=== PATIENT | male | born 1945 | race Caucasian/White ===

== ENCOUNTER 2021-04-07 03:29 | Outpatient (CLI) | payer OTHER, SELFPAY ==
[2021-04-07 10:40] LABS: Abs Immature Grans 0.07 10^3/uL (0.0-0.06); Absolute Basophil Count 0.02 10^3/uL (0.0-0.2); Absolute Eosinophil Count 0.21 10^3/uL (0.0-0.7); Absolute Lymphocyte Count 0.91 10^3/uL (1.2-3.4); Absolute Monocyte Count 1.36 10^3/uL (0.1-0.8); Absolute Neutrophil Count 6.06 10^3/uL (1.2-6.7); Basophils % 0.2; Eosinophils % 2.4; HCT 37.2 % (40.0-50.0); HGB 12.2 g/dL (13.5-17.5); Immature Grans % 0.8; Lymphocytes % 10.5; MCH 28.6 pg (27.0-33.0); MCHC 32.8 % (32.0-36.0); MCV 87.3 fL (80-95); MPV 10.8 fL (8.0-11.0); Monocytes % 15.8; Neutrophils % 70.3; Nucleated RBC 0 %; Platelet Count 168 10^3/uL (130-400); RBC 4.26 10^6/uL (4.36-5.78); RDW 12.9 % (11.8-14.1); RDW-SD 40.3 fL; WBC 8.63 10^3/uL (4.4-10.8)
[2021-04-07 11:01] LABS: ALT 14 U/L (16-63); AST 8 U/L (15-37); Albumin 3.3 g/dL (3.4-5.0); Alkaline Phosphatase 77 U/L (46-116); BUN 12 mg/dL (7-18); Bilirubin, Total 0.9 mg/dL (0.2-1.0); CREATININE 1.2 mg/dL (0.70-1.30); Calcium 8.6 mg/dL (8.5-10.1); Chloride 99 mmol/L (98-107); Estimated GFR 58.71 (mL/min/1.73m2); Glucose 102 mg/dL (74-106); Magnesium 2.2 mg/dL (1.8-2.4); Potassium 3.8 mmol/L (3.5-5.1); Sodium 138 mmol/L (136-145); TSH 2.73 uIU/mL (0.36-3.74); Total Protein 7.2 g/dL (6.4-8.2)
[2021-04-07 11:34] LABS: FREE T4 1.26 ng/dL (0.76-1.46)
== END 2021-04-07 03:30 | disposition home or self-care (01) ==
LOC: LBO 03:29
PROVIDERS: Visit Provider Internal Medicine Medical Oncology
DX: C34.91 Malignant neoplasm of unspecified part of right bronchus or lung (principal); Z79.899 Other long term (current) drug therapy
CPT/HCPCS: 36415; 80053; 83735; 84439; 84443; 85025

== ENCOUNTER 2021-04-28 04:39 | Outpatient (CLI) | payer OTHER, SELFPAY ==
[2021-04-28 10:39] LABS: Abs Immature Grans 0.07 10^3/uL (0.0-0.06); Absolute Basophil Count 0.02 10^3/uL (0.0-0.2); Absolute Eosinophil Count 0.44 10^3/uL (0.0-0.7); Absolute Lymphocyte Count 0.89 10^3/uL (1.2-3.4); Absolute Monocyte Count 1.25 10^3/uL (0.1-0.8); Absolute Neutrophil Count 3.05 10^3/uL (1.2-6.7); Basophils % 0.3; Eosinophils % 7.7; HCT 31.9 % (40.0-50.0); HGB 10.8 g/dL (13.5-17.5); Immature Grans % 1.2; Lymphocytes % 15.6; MCH 29.3 pg (27.0-33.0); MCHC 33.9 % (32.0-36.0); MCV 86.7 fL (80-95); MPV 8.7 fL (8.0-11.0); Monocytes % 21.9; Neutrophils % 53.3; Nucleated RBC 0 %; Platelet Count 219 10^3/uL (130-400); RBC 3.68 10^6/uL (4.36-5.78); RDW 15.4 % (11.8-14.1); RDW-SD 39.2 fL; WBC 5.72 10^3/uL (4.4-10.8)
[2021-04-28 11:03] LABS: ALT 33 U/L (16-63); AST 19 U/L (15-37); Albumin 3.1 g/dL (3.4-5.0); Alkaline Phosphatase 96 U/L (46-116); Anion Gap 5.5 mmol/L (3-11); BUN 13 mg/dL (7-18); Bilirubin, Total 0.6 mg/dL (0.2-1.0); CO2 31.5 mmol/L (21.0-32.0); CREATININE 1.2 mg/dL (0.70-1.30); Calcium 8.2 mg/dL (8.5-10.1); Chloride 91 mmol/L (98-107); Estimated GFR 58.71 (mL/min/1.73m2); FREE T4 1.42 ng/dL (0.76-1.46); Glucose 103 mg/dL (74-106); Magnesium 2.2 mg/dL (1.8-2.4); Potassium 3.7 mmol/L (3.5-5.1); Sodium 128 mmol/L (136-145); TSH 2.52 uIU/mL (0.36-3.74)
== END 2021-04-28 04:40 | disposition home or self-care (01) ==
LOC: LBO 04:40
PROVIDERS: Visit Provider Internal Medicine Medical Oncology
DX: C34.91 Malignant neoplasm of unspecified part of right bronchus or lung (principal); Z79.899 Other long term (current) drug therapy
CPT/HCPCS: 36415; 80053; 83735; 84439; 84443; 85025

== ENCOUNTER 2021-10-13 14:55 | Outpatient (CLI) | payer MEDICARE, SELFPAY ==
[2021-10-13 15:07] LABS: Abs Immature Grans 0.04 10^3/uL (0.0-0.06); Absolute Basophil Count 0.04 10^3/uL (0.0-0.2); Absolute Eosinophil Count 0.63 10^3/uL (0.0-0.7); Absolute Lymphocyte Count 0.88 10^3/uL (1.2-3.4); Absolute Monocyte Count 1.19 10^3/uL (0.1-0.8); Absolute Neutrophil Count 7.28 10^3/uL (1.2-6.7); Basophils % 0.4; Eosinophils % 6.3; HCT 34.1 % (40.0-50.0); HGB 10.6 g/dL (13.5-17.5); Immature Grans % 0.4; Lymphocytes % 8.7; MCH 26.8 pg (27.0-33.0); MCHC 31.1 % (32.0-36.0); MCV 86.3 fL (80-95); MPV 9.4 fL (8.0-11.0); Monocytes % 11.8; Neutrophils % 72.4; Nucleated RBC 0 %; Platelet Count 180 10^3/uL (130-400); RBC 3.95 10^6/uL (4.36-5.78); RDW 14.5 % (11.8-14.1); WBC 10.06 10^3/uL (4.4-10.8)
[2021-10-13 15:30] LABS: ALT 12 U/L (16-63); AST 17 U/L (15-37); Albumin 3.1 g/dL (3.4-5.0); Alkaline Phosphatase 87 U/L (46-116); Anion Gap 6.3 mmol/L (3-11); BUN 15 mg/dL (7-18); Bilirubin, Total 0.6 mg/dL (0.2-1.0); CO2 31.7 mmol/L (21.0-32.0); CREATININE 1.1 mg/dL (0.70-1.30); Calcium 8.9 mg/dL (8.5-10.1); Chloride 101 mmol/L (98-107); Glucose 100 mg/dL (74-106); Potassium 3.7 mmol/L (3.5-5.1); Sodium 139 mmol/L (136-145); Total Protein 7.5 g/dL (6.4-8.2)
== END 2021-10-13 14:56 | disposition home or self-care (01) ==
PROVIDERS: Visit Provider Internal Medicine Medical Oncology
DX: C34.91 Malignant neoplasm of unspecified part of right bronchus or lung (principal)
CPT/HCPCS: 36415; 80053; 85025

== ENCOUNTER 2021-11-24 16:16 | Outpatient (CLI) | payer MEDICARE, SELFPAY ==
[2021-11-24 09:02] LABS: Abs Immature Grans 0.07 10^3/uL (0.0-0.06); Absolute Basophil Count 0.04 10^3/uL (0.0-0.2); Absolute Eosinophil Count 0.38 10^3/uL (0.0-0.7); Absolute Lymphocyte Count 0.75 10^3/uL (1.2-3.4); Basophils % 0.3; Eosinophils % 2.8; HCT 32.3 % (40.0-50.0); Immature Grans % 0.5; Lymphocytes % 5.5; MCV 87.3 fL (80-95); Monocytes % 11.1; Neutrophils % 79.8; Nucleated RBC 0 %; Platelet Count 178 10^3/uL (130-400); RDW 16.4 % (11.8-14.1); WBC 13.65 10^3/uL (4.4-10.8)
[2021-11-24 09:06] LABS: Absolute Monocyte Count 1.52 10^3/uL (0.1-0.8); Absolute Neutrophil Count 10.89 10^3/uL (1.2-6.7)
[2021-11-24 09:37] LABS: ALT 11 U/L (16-63); AST 13 U/L (15-37); Albumin 2.8 g/dL (3.4-5.0); Alkaline Phosphatase 80 U/L (46-116); Anion Gap 5.1 mmol/L (3-11); BUN 16 mg/dL (7-18); Bilirubin, Total 0.9 mg/dL (0.2-1.0); CO2 34.9 mmol/L (21.0-32.0); CREATININE 1.2 mg/dL (0.70-1.30); Calcium 11.1 mg/dL (8.5-10.1); Chloride 98 mmol/L (98-107); Estimated GFR 58.56 (mL/min/1.73m2); FREE T4 1.36 ng/dL (0.76-1.46); Glucose 97 mg/dL (74-106); Sodium 138 mmol/L (136-145); TSH 2.25 uIU/mL (0.36-3.74); Total Protein 7.3 g/dL (6.4-8.2)
[2021-11-24 09:41] LABS: Potassium 2.7 mmol/L (3.5-5.1)
== END 2021-11-24 16:17 | disposition home or self-care (01) ==
LOC: LBO 16:19
PROVIDERS: Visit Provider Internal Medicine Medical Oncology
DX: Z79.899 Other long term (current) drug therapy (principal); C34.91 Malignant neoplasm of unspecified part of right bronchus or lung
CPT/HCPCS: 36415; 80053; 83735; 84439; 84443; 85025

== ENCOUNTER 2021-12-01 04:21 | Outpatient (CLI) | payer MEDICARE, SELFPAY ==
[2021-12-01 10:24] LABS: ALT 6 U/L (16-63); AST 15 U/L (15-37); Albumin 2.7 g/dL (3.4-5.0); Alkaline Phosphatase 75 U/L (46-116); Anion Gap 5.5 mmol/L (3-11); BUN 14 mg/dL (7-18); Bilirubin, Total 0.8 mg/dL (0.2-1.0); CO2 28.5 mmol/L (21.0-32.0); Calcium 8.7 mg/dL (8.5-10.1); Chloride 99 mmol/L (98-107); Glucose 123 mg/dL (74-106); Potassium 4.1 mmol/L (3.5-5.1); Sodium 133 mmol/L (136-145); Total Protein 7.1 g/dL (6.4-8.2)
== END 2021-12-01 04:22 | disposition home or self-care (01) ==
PROVIDERS: Visit Provider Internal Medicine Medical Oncology
DX: C34.91 Malignant neoplasm of unspecified part of right bronchus or lung (principal)
CPT/HCPCS: 36415; 80053